=== PATIENT | female | born 1955 | race Caucasian/White ===

== ENCOUNTER → 2016-10-27 | Outpatient (CLI) | payer MEDICARE ==
[~2016-10-27] MED LIST: ALBU1AER INH; ATOR10TA PO; BISO2.5T PO; CALC.25 PO; CITA-48 PO; ESTR0.5T9 PO; LEVO100T4 PO; OMEG5CAP PO; VITA400C28 PO
[2016-10-27 11:05] LABS: BASOPHIL % 0.3 % (0.0-2.0); EOSINOPHIL # 0.1 TH/MM3 (0-0.4); EOSINOPHIL % 1.4 % (0.0-4.0); HEMATOCRIT 42.8 % (35.0-46.0); HEMO FLAGS DIFF FINAL; LYMPH % 33.9 % (9.0-44.0); LYMPHOCYTE # 1.8 TH/MM3 (1.0-4.8); MEAN CELL VOLUME 93.1 FL (80.0-100.0); MEAN CORPUSCULAR HEMOGLOBIN 31.3 PG (27.0-34.0); MEAN CORPUSCULAR HGB CONC 33.6 % (32.0-36.0); MONO % 8.6 % (0.0-8.0); NEUT % 55.8 % (16.0-70.0); PLATELET COUNT 161 TH/MM3 (150-450); RED BLOOD COUNT 4.59 MIL/MM3 (4.00-5.30); WHITE BLOOD COUNT 5.4 TH/MM3 (4.0-11.0)
[2016-10-27 13:01] LABS: ALKALINE PHOSPHATASE 72 U/L (45-117); ALT (GPT) 19 U/L (10-53); ANION GAP 4 MEQ/L (5-15); AST (GOT) 14 U/L (15-37); BICARBONATE 29.9 MEQ/L (21.0-32.0); BLOOD UREA NITROGEN 17 MG/DL (7-18); CHLORIDE 105 MEQ/L (98-107); GLOMERULAR FILTRATION RATE 38 ML/MIN (>89); GLUCOSE,FASTING 85 MG/DL (74-99); LDL CHOLESTEROL 76 MG/DL (0-99); POTASSIUM 4.4 MEQ/L (3.5-5.1); SODIUM (NA) 139 MEQ/L (136-145); TOTAL BILIRUBIN ADULT 0.6 MG/DL (0.2-1.0)
== END ==
LOC: OLAB 10:46
PROVIDERS: ATTEND Family Medicine
DX: E78.2 Mixed hyperlipidemia (principal); I12.9 Hypertensive chronic kidney disease with stage 1 through stage 4 chronic kidney disease, or unspecified chronic kidney disease; G35 Multiple sclerosis; N18.3 Chronic kidney disease, stage 3 (moderate); E03.9 Hypothyroidism, unspecified
CPT/HCPCS: 36415; 80053; 80061; 84443; 85025